=== PATIENT | female | born 1990 | race American Indian/Alaskan Native ===

== ENCOUNTER 2019-06-15 11:00 | Outpatient (CLI) | payer MEDICAID | END 2019-06-15 11:01 | disposition home or self-care (01) | LOC: SLR 11:00 | PROVIDERS: ATTEND Specialist | DX: G47.33 Obstructive sleep apnea (adult) (pediatric) (principal) | CPT/HCPCS: 95811 ==

== ENCOUNTER 2022-07-16 10:43 | Outpatient (CLI) | payer OTHER ==
--- NOTE | 2022-07-16 13:31 | XRay Report ---
LEFT WRIST 2 VIEW(S) INDICATION / CLINICAL INFORMATION: LEFT WRIST PAIN COMPARISON: None available. FINDINGS: BONES / JOINT(S): No acute fracture demonstrated. Fragmented appearance of the lunate, evaluation merida ited by two-view technique. Mild multifocal joint space loss. Ulnar minus variance. SOFT TISSUES: No significant abnormality. ADDITIONAL FINDINGS: None. IMPRESSION: 1. 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 Correlate for history of prior trauma. Better charact erization with 4 view wrist radiographs recommended at a minimum, versus cross-sectional imaging . 2. Mild degenerative and additional ancillary findings as described. Signer Name: Whit Roman MD Signed: 07/16/2022 1:27 PM Workstation Name: [email or web address]
--- NOTE | 2022-07-16 13:32 | XRay Report ---
THORACIC SPINE 3 VIEWS INDICATION / CLINICAL INFORMATION: BACK PAIN. COMPARISON: None available. FINDINGS: VERTEBRAE: No acute fracture. No significant malalignment. DISC SPACES / FACET JOINTS:No significant abnormality. PARASPINAL SOFT TISSUES:No significant abnormality. ADDITIONAL FINDINGS: Portions of the upper most thoracic spine were not imaged or evaluated. IMPRESSION: 1. No acute thoracic spine findings, within technical limitations detailed above. Signer Name: Whit Roman MD Signed: 07/16/2022 1:28 PM Workstation Name: [email or web address]
== END 2022-07-16 10:44 | disposition home or self-care (01) ==
LOC: XRAY 10:43
PROVIDERS: ATTEND Internal Medicine
DX: M19.032 Primary osteoarthritis, left wrist (principal); M54.50 Low back pain, unspecified
CPT/HCPCS: 72070